=== PATIENT | female | born 1960 | race Two or more races ===

== ENCOUNTER → 2018-04-28 | Outpatient (CLI) | payer OTHER ==
[~2018-04-28] MED LIST: NONE PER PT
[2018-04-28 10:04] LABS: BASOPHILS # (AUTO) 0.03 x10^3/uL (0-0.1); BASOPHILS % (AUTO) 0 % (0-1); EOSINOPHILS % (AUTO) 0 % (1-7); LYMPHOCYTES # (AUTO) 1.66 x10^3/uL (1-3.4); LYMPHOCYTES % (AUTO) 22 % (22-44); MD NO; MEAN CORPUSCULAR HEMOGLOBIN 30.7 pg (27.0-34.8); MEAN CORPUSCULAR HGB CONC 34.1 g/dL (32.4-35.8); MEAN CORPUSCULAR VOLUME 90.2 fL (80-100); MEAN PLATELET VOLUME 8.2 fL (7.4-10.4); MONOCYTES # (AUTO) 0.41 x10^3/uL (0.2-0.8); MONOCYTES % (AUTO) 6 % (2-9); NEUTROPHILS # (AUTO) 5.36 x10^3/uL (1.8-6.8); NEUTROPHILS % (AUTO) 72 % (42-75); PLATELET COUNT 317 x10^3/uL (130-400); RED BLOOD COUNT 4.44 x10^6/uL (3.82-5.3); RED CELL DISTRIBUTION WIDTH 13.5 % (9.6-15.2)
== END | disposition home or self-care (01) ==
LOC: STAR 09:11
PROVIDERS: ATTEND Obstetrics & Gynecology
DX: Z01.818 Encounter for other preprocedural examination (principal); N84.0 Polyp of corpus uteri
CPT/HCPCS: 36415; 84703; 85025; 93005

== ENCOUNTER 2018-05-03 12:15 | Day surgery (SDC) | payer OTHER ==
[~2018-05-03] VITALS: Ht 160 cm; Wt 84.3 kg
[2018-05-03] MEDS ORDERED: GABAPENTIN 300 MG CAPSULE PO ONE (13:00)
[2018-05-03] MEDS ORDERED: ONDANSETRON ODT 8 MG PO ONE (13:00)
[2018-05-03] MEDS ORDERED: SCOPOLAMINE PATCH, 1.5MG PATCH.TD72 TD ONE (13:00)
[2018-05-03] MEDS ORDERED: OxyconTIN ER 20 MG TAB.ER PO ONE (13:00)
[2018-05-03] MEDS ORDERED: ACETAMINOPHEN 500 MG TABLET PO ONE (13:00)
[2018-05-03] MEDS ORDERED: LACTATED RINGERS 1,000 ML IV SCH (13:03)
[2018-05-03] MEDS ORDERED: MIDAZOLAM 1 MG/ML, 2ML ONE (13:23)
[2018-05-03] MEDS ORDERED: FENTANYL PF 250 MCG/5ML ONE (13:23)
[2018-05-03] MEDS ORDERED: PROPOFOL 10 MG/ML, 20ML ONE (13:24)
[2018-05-03] MEDS ORDERED: DEXAMETHASONE 4 MG/ML, 1ML ONE ×2 (13:25)
[2018-05-03] MEDS ORDERED: EPINEPHRINE 1 MG/ML, 1ML ONE (14:12)
[2018-05-03] MEDS ORDERED: BUPIVACAINE/PF 0.25% ONE (14:12)
[2018-05-03] MEDS ORDERED: SILVER NITRATE STICK TP ONE (14:12)
[2018-05-03] MEDS ORDERED: ONDANSETRON ODT 8 MG PO PRN (14:30)
[2018-05-03] MEDS ORDERED: MEPERIDINE/PF 25MG/0.5ML IVPush PRN (14:30)
[2018-05-03] MEDS ORDERED: hydrALAzine 20 MG/ML, 1ML IV PRN (14:30)
[2018-05-03] MEDS ORDERED: PROMETHAZINE 12.5 MG SUPP PR PRN (14:30)
[2018-05-03] MEDS ORDERED: FENTANYL PF 100 MCG/2ML IV PRN (14:30)
[2018-05-03] MEDS ORDERED: PROMETHAZINE 25 MG/ML, 1ML IV PRN (14:30)
[2018-05-03] MEDS ORDERED: LABETALOL 5MG/ML, 20ML IV PRN (14:30)
[2018-05-03] MEDS ORDERED: MORPHINE SULFATE 4 MG/ML, 1ML IVPush PRN (14:30)
[2018-05-03] MEDS ORDERED: PROMETHAZINE 25 MG SUPP PR PRN (14:30)
[2018-05-03] MEDS ORDERED: HYDROmorphone 2 MG/ML, 1ML IV PRN (14:30)
[2018-05-03] MEDS ORDERED: OXYcodone 5 MG/5 ML ORAL.SOL UDC PO PRN (14:30)
[2018-05-03] MEDS ORDERED: WATER-INJECTION,STERILE 10 ML IV ONE (14:44)
[2018-05-03] MEDS ORDERED: CEFAZOLIN 1,000 MG ONE ×2 (14:45)
[2018-05-03] MEDS ORDERED: KETOROLAC 30 MG/1 ML ONE ×2 (15:05)
[2018-05-03] MEDS ORDERED: OXYcodone/APAP 5/325MG TABLET ONE (17:19)
[2018-05-03] MEDS ORDERED: OXYcodone/APAP 5/325MG TABLET PO PRN (17:30)
[2018-05-03] MEDS ORDERED: morphine SULFATE 10 MG/ML, 1ML IVPush PRN (17:30)
== END 2018-05-03 18:45 ==
LOC: OUT 12:15
PROVIDERS: ATTEND Obstetrics & Gynecology
DX: D25.0 Submucous leiomyoma of uterus (principal); N84.0 Polyp of corpus uteri; Z98.890 Other specified postprocedural states
CPT/HCPCS: 58558; 88305; J0171; J0690; J1100; J1885; J2250; J2704; J3010; J3490; J7120; Q0162